=== PATIENT | male | born 1995 | race Caucasian/White ===

== ENCOUNTER 2017-04-21 20:14 | Emergency (ER) | payer OTHER ==
[2017-04-21 20:16] VITALS: BP 150/90; PULSE 101; RESP 16; TEMP 99.3; O2SAT 96
--- NOTE | 2017-04-21 20:37 | PD ---
HPI Chief Complaint: Respiratory Distress Time Seen by Provider: 20:30 Travel History International Travel<30 days: No Contact w/Intl Traveler<30days: No Traveled to known affect area: No History of Present Illness HPI Patient comes in complaining of asthma exacerbation. Patient is to the past week he's been fighting a cold. Patient states he has been using his inhaler for symptomatic relief. Patient states this is making his asthma worse. [place] He states that after he spoke with his parents he decided to come to the emergency department further treatment and evaluation. Patient reports nonproductive cough and feeling short of breath similar to previous asthma exacerbations. Patient denies any known fevers, nausea, vomiting, chest pain, headache, numbness or tingling anywhere, loss change in bowel or bladder, or abdominal pain. PFSH Past Medical History Asthma: Yes Respiratory: Yes (ASTHMA) Immunizations Current: Yes Tetanus Vaccination: Unknown Influenza Vaccination: No Social History Alcohol Use: No Tobacco Use: No Substance Use: No Allergies-Medications (Allergen,Severity, Reaction): Coded Allergies: shellfish derived (Verified Allergy, Severe, Arrhythmias, 04/21/17) Reported Meds & Prescriptions Reported Meds & Active Scripts Active Zithromax Z-Rex (Azithromycin) 250 Mg Dspk 250 Mg PO DIRECTED 500 MG (2 tabs) day 1, then 1 tab days 2-5. Medrol Dosepak (Methylprednisolone) 4 Mg Dspk 4 Mg PO DIRECTED Per Pharmacist direction Ventolin Hfa 18 GM Inh (Albuterol Sulfate) 90 Mcg/Act Aer 2 Puff INH Q4H PRN Review of Systems Except as stated in HPI: all other systems reviewed are Neg Physical Exam Narrative GENERAL: Well-developed, overly nourished, in no acute distress, and non-ill appearing. SKIN: Focused skin assessment warm and dry. HEAD: Atraumatic. Normocephalic. EYES: Pupils equal and round. EOMI. No scleral icterus. No injection or drainage. ENT: No nasal bleeding or discharge. Mucous membranes pink and moist. NECK: Trachea midline. Supple. No nuclear rigidity. CARDIOVASCULAR: Regular rate and rhythm. No murmur appreciated. RESPIRATORY: No accessory muscle use. No respiratory distress. Tight and wheezing throughout. Breath sounds equal bilaterally. Speaking in full sentences without difficulty. MUSCULOSKELETAL: No obvious deformities. No clubbing. No cyanosis. No edema. Full range of motion. NEUROLOGICAL: Awake and alert. No obvious cranial nerve deficits. Motor grossly within normal limits. Normal speech. PSYCHIATRIC: Appropriate mood and affect; insight and judgment normal. Data Data Last Documented VS Vital Signs Date Time Temp Pulse Resp B/P (MAP) Pulse Ox O2 Delivery O2 Flow Rate FiO2 04/21/17 22:07 04/21/17 20:16 99.3 101 16 96 Orders Orders Albuterol-Ipratropium Neb (Duoneb Neb) (04/21/17 20:45) Resp Mdi/Instruction (04/21/17 20:31) Prednisone (Deltasone) (04/21/17 20:45) Ed Discharge Order (04/21/17 22:01) [facility] Medical Decision Making Medical Screen Exam Complete: Yes Emergency Medical Condition: Yes Differential Diagnosis Asthma exacerbation, bronchitis, pneumonia, upper respiratory infection, viral syndrome, other Narrative Course The patient looks great and improved well with Nebulizer and steroid medication. The patient is moving air well and in no distress nor significant dyspnea, and oxygen saturation is within normal limits. There is no clinical evidence to suggest pneumonia at this time, however the patient may have a mild bronchitis. Diagnosis, plan of care and management were discussed with the patient who agreed with plan and feels better and ready to go home. The patient was instructed to return if worsen, worsening difficulty breathing or wheezing, persistent fever, chest pain or as needed. Patient in no obvious distress upon re-evaluation. Patient was asked if they wanted to speak to my attending, which the patient did not wish to do at this time. Any questions/concerns in reference to patient diagnosis/condition discussed and clarified prior to patient's discharge. Reinforced sheer importance of close follow up with patient's primary physician or primary care clinic. Instructed patient to return to ED immediately, if symptoms return/ worsen. Patient showed understanding of above instructions. Further instructions and recommendations were detailed in discharge paperwork. Patient ambulated without difficulty out of ED at discharge. Diagnosis Primary Impression: Asthma exacerbation Qualified Codes: J45.901 - Unspecified asthma with (acute) exacerbation Patient Instructions: Asthma (ED), General Instructions Additional Instructions: Follow-up with your primary care physician next week for evaluation. Take all medication as prescribed. Return to the emergency department if symptoms get worse. Med/Other Pt SpecificInfo: Prescription(s) given Scripts Azithromycin (Zithromax Z-Rex) 250 Mg Dspk 250 MG PO DIRECTED for Infection, #1 DSPK 0 Refills 500 MG (2 tabs) day 1, then 1 tab days 2-5. Prov: Chuy Longo MD 04/21/17 Methylprednisolone Dosepak (Medrol Dosepak) 4 Mg Dspk 4 MG PO DIRECTED, #1 DSPK 0 Refills Per Pharmacist direction Prov: Chuy Longo MD 04/21/17 Albuterol 18 GM Inh (Ventolin Hfa 18 GM Inh) 90 Mcg/Act Aer 2 PUFF INH Q4H Y for SHORTNESS OF BREATH, #1 INHALER 0 Refills Prov: Chuy Longo MD 04/21/17 Disposition: 01 DISCHARGE HOME Condition: Stable Pato Bernal Apr 21, 2017 20:37
[2017-04-21] MEDS ORDERED: predniSONE 20 MG TAB PO ONE (20:45)
[2017-04-21] MEDS: RESP: ALBUTEROL 2.5 MG/IPRATROPIUM 0.5 MG NEB (SCH) INH (21:30)
[2017-04-21] MEDS ORDERED: MEDR4PAK PO (22:00)
[2017-04-21] MEDS ORDERED: ZITHTAB PO (22:00)
[2017-04-21] MEDS ORDERED: VENTAER INH (22:00)
== END 2017-04-21 22:10 | disposition home or self-care (01) ==
LOC: NEPK 20:14
DX: J45.901 Unspecified asthma with (acute) exacerbation (principal)
CPT/HCPCS: 94640; 94664; 99284; J7512